=== PATIENT | male | born 1975 | race Two or more races ===

== ENCOUNTER 2017-10-22 04:39 | Emergency (ER) | payer MEDICAID ==
[2017-10-22 04:45] VITALS: TEMP 98.6
--- NOTE | 2017-10-22 04:46 | EDPHY ---
H & P Stated Complaint: L hand injury, "nail through it 2 days ago" Source: Patient - Personal History Current Tetanus Diphtheria and Acellular Pertussis (TDAP): Yes Tetanus Vaccine Date: 12/25/12 - Medical/Surgical History Hx Asthma: No Hx Chronic Respiratory Disease: No Hx Diabetes: No Hx Cardiac Disease: No Hx Renal Disease: No Hx Cirrhosis: No Hx Alcoholism: No Hx HIV/AIDS: No Hx Splenectomy or Spleen Trauma: No Other PMH: pmh- previous back injury - Social History Smoking Status: Current every day smoker Time Seen by Provider: 10/22/17 04:40 HPI/ROS: HPI CHIEF COMPLAINT: Now through the palmar aspect of the left hand on Friday/3 days a go HISTORY OF PRESENT ILLNESS: Patient is a very pleasant 42-year-old male he is otherwise healthy with no significant medical history presents emergency room stating that on Friday or approximately 3 days ago he was doing some construction work and pushed on a cabinet, did not see the nail the nail went into the palmar aspect middle aspect of his left hand. He woke up this evening with his hand throbbing. He has had no fever. Denies any significant drainage from it. However the pain is rather intense see could not sleep so decided come the emergency room for evaluation. He does report his tetanus shot is up- to-date as he had one in 2011. Patient been taking ibuprofen for pain control. However has ongoing pain. Past Medical History: Denies medical history Past Surgical History: Denies recent surgery history Social History: Denies daily drugs or alcohol. Family History: Noncontributory ROS REVIEW OF SYSTEMS: A comprehensive 10 point review of systems is otherwise negative aside from elements mentioned in the history of present illness. Exam Constitutional triage nursing summary reviewed, vital signs reviewed, awake/ alert. Eyes normal conjunctivae and sclera, EOMI, PERRLA. HENT normal inspection, atraumatic, moist mucus membranes, no epistaxis, neck supple/ no meningismus, no raccoon eyes. Respiratory clear to auscultation bilaterally, normal breath sounds, no respiratory distress, no wheezing. Cardiovascular rate normal, regular rhythm, no murmur, no edema, distal pulses normal. Gastrointestinal soft, non-tender, no rebound, no guarding, normal bowel sounds, no distension, no pulsatile mass. Genitourinary no CVA tenderness. Musculoskeletal left hand: Palmar aspect: Minor swelling noted to the palmar aspect left hand. He has good experimental technician strength, able to fully extend his fingers. There is a puncture wound at the center of his palm, mild erythema to it no significant warmth. No pus. No crepitus. Does have pain when you press there as well as when he flexes his fingers all the way in. No sausage digit. Good cap refill. Good radial pulse. No signs of compartment syndrome. no midline vertebral tenderness, full range of motion, no calf swelling, no tenderness of extremities, no meningismus, good pulses, neurovascularly intact. Skin pink, warm, & dry, no rash, skin atraumatic. Neurologic awake, alert and oriented x 3, AAOx3, moves all 4 extremities equally, motor intact, sensory intact, CN II-XII intact, normal cerebellar, normal vision, normal speech. Psychiatric normal mood/affect. Heme/Lymph/Immune no lymphadenopathy. Differential Diagnosis: Includes but is not limited to in a particular order puncture wound causing hand inflammation, infection, deep space hand infection, foreign body, tendon injury, bony injury, laceration of a blood vessel Medical Decision Making: Plan for this patient check basic blood work including white count, x-ray left hand. Mariposa for pain control. Keflex and Bactrim for antibiotic coverage. Re-evaluation: Hand x-ray three view reviewed by me. No evidence of foreign body or gas. Very mild soft tissue swelling. 0634AM: Spoke with Hand surgery Dr. Melchor, discussed the case with him, given the redness, puncture wound, hand swelling there is concern about possible deep space hand infection. He would like an MRI of the hand. I have ordered this. Will need to call in MRIs at 6:30 a.m. In the morning. I have updated the patient. This patient be signed over to Dr. Hakeem Howe at 7:00 a.m. Shift change. Follow-up MRI results and notify Dr. Coleman's about the MRI results. Patient has received Keflex and Bactrim here in the emergency room. As well as additionally Mariposa for pain control. His blood work has been reviewed. Does show mild leukocytosis 13,000. Left shift. He is afebrile here. Nontoxic. 0642AM: Signed over to Dr. Howe. Pending results of MRI. (Robbin Asher) Constitutional: Initial Vital Signs Temperature (C) 37.0 C 10/22/17 04:40 Heart Rate 107 H 10/22/17 04:40 Respiratory Rate 20 10/22/17 04:40 Blood Pressure 124/89 H 10/22/17 04:40 O2 Sat (%) 94 10/22/17 04:40 O2 Delivery Mode Room Air Allergies/Adverse Reactions: venom-honey bee [bee venom (honey bee)] Allergy (Verified 10/22/17 04:40) Home Medications: Medication Instructions Recorded Cephalexin [Keflex] 500 mg PO Q6H #28 cap 10/22/17 Hydrocodone/APAP 5/325 [Mariposa 1 - 2 tab PO Q4H PRN #20 tab 10/22/17 5/325] Ibuprofen [Motrin (*)] 800 mg PO Q6-8PRN #14 tab 10/22/17 Sulfamethox/Tmp 800/160 mg 1 tab PO BID@1000,2200 #14 tab 10/22/17 [Bactrim Ds] Medical Decision Making - Diagnostics Imaging Results: Imaging Impressions Upper Extremity MRI 10/22/17 06:38 Impression: Cellulitis palmar aspect of the hand extending to the flexor tendons at the level of the metacarpophalangeal joint. Minimal tenosynovitis third flexor tendon. No evidence for abscess. Results discussed with Dr. Alli Coleman and Dr. Hakeem Howe on 22 October 2017 at 0845 hours. Other Provider: Patient signed out to me at 0700 pending MRI. MRI read by Arnaldo as concerning for possible tenosynovitis. I discussed the case with Dr. Coleman who plans to wash out hand in OR later this afternoon. He requests medicine admit. Patient accepted by Marj for admission to Dr. Whitaker's service. (Hakeem Howe) - Data Points Laboratory Results: Laboratory Results 10/22/17 04:58 10/22/17 04:58 Medications Given: Discontinued Medications Hydrocodone Bitart/Acetaminophen (Mariposa 5/325mg Prepack#6) 1 btl TAKEHOME EDNOW ONE Stop: 10/22/17 04:52 Last Admin: 10/22/17 05:09 Dose: 1 btl Hydrocodone Bitart/Acetaminophen (Mar[place]osa 10/325) 1 tab PO EDNOW ONE Stop: 10/22/17 04:52 Last Admin: 10/22/17 05:07 Dose: Not Given Hydrocodone Bitart/Acetaminophen (Mariposa 5/325) 2 tab PO EDNOW ONE Stop: 10/22/17 05:07 Last Admin: 10/22/17 05:06 Dose: 2 tab Cephalexin (Keflex 500 Mg Prepack#4) 1 btl TAKEHOME EDNOW ONE PRN Reason: Protocol Stop: 10/22/17 04:53 Last Admin: 10/22/17 05:08 Dose: 1 btl Cephalexin HCl (Keflex) 500 mg PO EDNOW ONE PRN Reason: Protocol Stop: 10/22/17 04:53 Last Admin: 10/22/17 05:07 Dose: 500 mg Trimethoprim/Sulfamethoxazole (Bactrim Ds Prepack#2) 1 btl TAKEHOME EDNOW ONE Stop: 10/22/17 04:53 Last Admin: 10/22/17 05:08 Dose: 1 btl Trimethoprim/Sulfamethoxazole (Bactrim Ds) 1 ea PO EDNOW ONE PRN Reason: Protocol Stop: 10/22/17 04:53 Last Admin: 10/22/17 05:07 Dose: 1 ea Departure - Departure Disposition: Home, Routine, Self-Care Clinical Impression: Puncture wound Condition: Good Instructions: Cephalexin (By mouth), Sulfamethoxazole/Trimethoprim (By mouth), Hydrocodone/Acetaminophen (By mouth), Puncture Wound (ED), Cellulitis (ED) Additional Instructions: 1. Return emergency room if you have worsening pain, swelling, fever, redness, drainage 2. Antibiotics as prescribed. 3. Keep her hand protected. 4. Follow up closely with Hand surgery. Call their for follow-up appointment. Referrals: NONE *PRIMARY CARE P,. [Primary Care Provider] - As per Instructions Alli Coleman MD [Medical Doctor] - As per Instructions Prescriptions: Cephalexin [Keflex] 500 mg PO Q6H #28 cap Hydrocodone/APAP 5/325 [Mariposa 5/325] 1 - 2 tab PO Q4H PRN #20 tab PRN Reason: Pain, Moderate Ibuprofen [Motrin (*)] 800 mg PO Q6-8PRN #14 tab Sulfamethox/Tmp 800/160 mg [Bactrim Ds] 1 tab PO BID@1000,2200 #14 tab
[2017-10-22] MEDS ORDERED: HYDROCOD/APAP 5/325 PREPACK#6 BTL TAKEHOME ONE (04:51)
[2017-10-22] MEDS ORDERED: HYDROCODONE/APAP 10/325 TAB PO ONE (04:51)
[2017-10-22] MEDS ORDERED: CEPHALEXIN 500MG PREPACK#4 BTL TAKEHOME ONE (04:52)
[2017-10-22] MEDS ORDERED: CEPHALEXIN 500 MG CAP PO ONE (04:52)
[2017-10-22] MEDS ORDERED: SULFAMET/TMP DS PREPACK#2 BTL TAKEHOME ONE (04:52)
[2017-10-22] MEDS ORDERED: SULFAMETHOX/TMP 800/160 MG 1 TAB PO ONE (04:52)
[2017-10-22] MEDS ORDERED: HYDROCODONE/APAP 5/325 TAB ONE (05:03)
[2017-10-22] MEDS ORDERED: HYDROCODONE/APAP 5/325 TAB PO ONE (05:06)
[2017-10-22 05:26] LABS: PLATELET COUNT 229 10^3/uL (150-400)
[2017-10-22] MEDS ORDERED: GADOBUTROL 10 ML VIAL IVP ONE (06:56)
[2017-10-22 09:12] VITALS: BP 126/72; PULSE 65; RESP 16; O2SAT 98
[2017-10-22] MEDS ORDERED: ACETAMINOPHEN 325 MG TAB PO PRN (14:30)
[2017-10-22] MEDS ORDERED: oxyCODONE IR 5 MG TAB PO PRN (14:30)
[2017-10-22] MEDS ORDERED: ONDANSETRON 4 MG/2 ML VIAL IVP PRN (14:30)
[2017-10-22] MEDS ORDERED: ONDANSETRON DISINTEGRATING 4 MG TAB PO PRN (14:30)
--- NOTE | 2017-10-23 06:32 | GCON ---
[f rep st] CONSULTATION Patient Name: JAXON MOSQUERA N-Number: [id number] Date of : 1975 Patient Status: Inpatient Attending Doctor: Salvatore Myrick MD Consulting Doctor: Alli Coleman MD Date of service: 10/22/17 CPT codes: CPT code 21309 ER visit requiring admission or initial inpatient visit, level three Modifier 57 decision for surgery CHIEF COMPLAINT: Left hand pain HISTORY OF PRESENT ILLNESS: This is a very pleasant 42 year old male now two days s/p a left volar hand puncture wound with a nail on 10/20/17 when he was assembling some cabinets. He presented to the [facility] ED earlier today (10/22/17) due to increasing pain and swelling in his left hand. He subsequently underwent a left hand MRI which demonstrated left hand cellulitis, an early deep space abscess, and early left long finger flexor tenosynovitis. PROBLEM LIST: Left hand deep space infection, left long finger flexor tenosynovitis PAST MEDICAL HISTORY: None SURGERIES: Right tibia IMN (2012) SOCIAL HISTORY: Positive for tobacco FAMILY HISTORY: Mother and siblings with DM II CURRENT MEDICATIONS: None ALLERGIES: NKDA REVIEW OF SYSTEMS Constitutional: No unexpected weight loss, weight gain, fevers, chills, or fatigue. Eyes: No blurred or double vision, no eye pain, redness or swelling. ENT: No headaches, difficulty swallowing, nose bleeds, tinnitus, or earaches. Cardiovascular: No chest pain, palpitations, fainting or murmurs. Respiratory: No shortness of breath, wheezing, cough, of difficulty breathing. GI: No reflux, no nausea or vomiting, no constipation, diarrhea, or bloody stools. Genitourinary: No urinary frequency or urgency, no pain with urination. Skin: No skin changes, rashes, itching, or redness. Neurologic: No unsteadiness of gait, no dizziness, tremors, or seizures. Psychiatric: No nervousness, anxiety, depression, or hallucinations. Hematologic: No increased bleeding or easy bruising. Endocrine: No excessive thirst or urination and no heat or cold intolerances. Allergic: No reactions to food or environment. Musculoskeletal: See history of present illness. PHYSICAL EXAM General: No apparent distress. Orientation: Alert and oriented times three Mood and affect: Calm, appropriate. Gait and station: Normal gait and station. Skin: Warm, dry. Lymph: Non tender neck, axillary and inguinal nodes. Chest: Equal expansion, no pain with deep breaths, speaks in coherent sentences. Cardiovascular: Regular pulse. Abdomen: Soft, non-tender, no masses, no palpable hernias. Bilateral wrist examination Inspection/palpation: Right: Normal resting posture. Left: Erythematous streaking along the volar forearm and anterior elbow Wrist ROM Wrist Flexion: 90 / 90 / 90 Extension: 90 / 90 / 90 Forearm Supination: 0-80 / 0-80 / 0-80 Pronation: 0-80 / 0-80 / 0-80 Wrist/hand strength (R / L / Normal) ECRL/ECRB (C6): FCU/ECU: EDC: EPL (PIN): FPL (AIN): FDS (C8): FDP (C8): FDP-I (C8 / AIN): DI (C8-T1): PI (C8-T1): Wrist/hand sensory MABC : + / + / + LABC: + / + / + Median: + / + / + Palmar cutaneous: + / + / + Radial: + / + / + SBRN: + / + / + Ulnar: + / + / + DSBUN: + / + / + Bilateral hand and finger examination Inspection/palpation: Right: Soft, no tenderness to palpation. Left: 2mm puncture wound overlying the volar aspect of the left long finger mid metacarpal shaft with surrounding erythema and swelling, pain with passive extension of the left long finger Finger ROM Index MCP: 0-80 / 0-80 / 0-80 PIP: 0-105 / 0-105 / 0-105 DIP: 0-75 / 0-75 / 0-75 Long MCP: 0-80 / 0-60 / 0-80 PIP: 0-105 / 0-85 / 0-105 DIP: 0-75 / 0-55 / 0-75 Ring MCP: 0-80 / 0-80 / 0-80 PIP: 0-105 / 0-105 / 0-105 DIP: 0-75 / 0-75 / 0-75 Small MCP: 0-80 / 0-80 / 0-80 PIP: 0-105 / 0-105 / 0-105 DIP: 0-75 / 0-75 / 0-75 Finger motor and sensory Index FDS: + / + / + FDP: + / + / + EDC: + / + / + RDN: + / + / + UDN: + / + / + Long FDS: + / + / + FDP: + / + / + EDC: + / + / + RDN: + / + / + UDN: + / + / + Ring FDS: + / + / + FDP: + / + / + EDC: + / + / + RDN: + / + / + UDN: + / + / + Small FDS: + / + / + FDP: + / + / + EDC: + / + / + RDN: + / + / + UDN: + / + / + Bilateral thumb examination Inspection/palpation: Right: Soft, no tenderness to palpation. Left: Soft, no tenderness to palpation. Thumb ROM CMC Radial abduction: 80 / 80 / 80 Palmar abduction: 80 / 80 / 80 MCP: 0-60 / 0-60 / 0-60 IP: 0-50 / 0-50 / 0-50 Thumb motors FPL: 5 / 5 / 5 EPL: 5 / 5 / 5 Thumb sensory RDN: + / + / + UDN: + / + / + Medical decision making Data Imaging study: left hand MRI Action: interpreted Interpretation / pertinent findings: left hand early deep space infection overlying the left long finger mid metacarpal shaft volarly, early left long finger flexor tenosynovitis Diagnoses New diagnosis: early left hand deep space infection, early left long finger flexor tenosynovitis Work-up planned: yes: see assessment and plan Assessment and plan This is a 42 year old male now 2 days s/p a left hand puncture wound on 10/20/17 with an early left hand deep space infection as well as early left long finger flexor tenosynovitis -As such I have discussed with the patient the risks, benefits, alternatives, and complications associated with both non-operative (specifically, observation , antibiotics) and operative (specifically, left hand irrigation and debridement ) forms of treatment -The patient fully understands the risks, benefits, alternatives, and complications of both forms of treatment and the patient wishes to proceed with operative intervention as outlined above -He has signed the informed consent form for surgery and surgery will be performed as soon as the OR is available Time I have spent 80 minutes of rqey-sw-[id number] time with the patient during this visit. Over fifty percent of this time was spent counseling the patient on the risks, benefits, alternatives, and complications of both non-operative and operative forms of treatment as outlined above. /[id number]/MODL MTDD
--- NOTE | 2017-10-23 06:38 | GOP ---
[f rep st] OPERATIVE REPORT PATIENT: JAXON MOSQUERA DATE OF SERVICE: 10/22/17 PATIENT DATE OF : 1975 SURGEON: Alli Coleman M.D. FARM OWNER OPERATOR: Nadiya ANESTHESIA: General PRE-OPERATIVE DIAGNOSES: Left hand deep space infection (ICD-10 code L02.512 cutaneous abscess of left hand) Left long finger purulent flexor tenosynovitis (ICD-10 code M65.849 flexor tenosynovitis) POST-OPERATIVE DIAGNOSES: Left hand deep space infection (ICD-10 code L02.512 cutaneous abscess of left hand) Left long finger purulent flexor tenosynovitis (ICD-10 code M65.849 flexor tenosynovitis) OPERATIVE PROCEDURES: CPT code 06235 Left long finger A1 franklin release CPT code 40180 Left long finger flexor tenosynovectomy CPT code 30173 Left long finger drainage of tendon sheath CPT code 11268 Left hand abscess incision and drainage, complicated CPT code 46959 Debridement of muscle and fascia, first 20 square cm or less CPT code 50577 Left open carpal tunnel release CPT code 72002 Application of a short-arm splint EBL: 1cc COMPLICATIONS: None TOURNIQUET TIME: 87 minutes at 250 mmHg IMPLANTS: None BRIEF CLINICAL NOTE: This is a very pleasant 42 year old male with a significant history for an early left hand deep space infection and early left long finger flexor tenosynovitis after a penetrating trauma on 10/20/17. As such , I discussed the risks, benefits, alternatives, and complications associated with both non-operative (specifically, observation, antibiotics) and operative ( specifically, left hand irrigation and debridement) forms of treatment. The patient fully understood the risks, benefits, alternatives, and complications associated with both forms of treatment and wished to proceed with operative intervention as outlined above. The patient signed the informed consent form for surgery. OPERATIVE NOTE: On the day of surgery, all of the patients questions were answered. The patient was then transferred from the pre-operative area into the operating room and a formal, Time-Out procedure was performed. The patient was identified by name, medical record number, social security number, and date of . In addition, the patients left upper extremity was identified as the correct portion of the patients body for surgery with the patients left hand being identified as the correct portion of that extremity for surgery. The brachium was then padded with webril and tourniquet was applied. The extremity was then prepped and draped in the normal sterile fashion. The extremity was then elevated for several minutes and the tourniquet was inflated to 250mm Hg. Suzi-type incisions were marked out overlying the left long finger distal phalanx and the left long finger A1 franklin. In addition, the A1 franklin incision was extended proximally overlying the carpal tunnel to incorporate the puncture wound into the incision. A number 15 blade was then used to incise the skin surrounding the puncture wound both proximally and distally. Soon after incising the skin, a moderate amount of purulent material was encountered overlying the left long finger flexor tendon and the interosseous muscles. The purulent material was swab cultured and tissue cultures were also obtained and sent to the laboratory for microbiologic examination. The anesthesia team administered intravenous antibiotics. The radial and ulnar neurovascular bundles to the long finger were identified and protected. The superficial palmar fascia was then incised longitudinally overlying the carpal tunnel. The transverse carpal ligament was then incised in its entirety (carpal tunnel release) to provide acess to the long finger flexor tendon within the carpal tunnel. Next, the left long finger A1 franklin was released. The left long finger flexor tendons were surrounded by unhealthy appearing synovial tissue. As such, a radical tenosynovectomy was performed for the left long finger flexor tendons. The wound was then sharply surgically debrided and copiously irrigated with sterile normal saline mixed with bacitracin and polymixin. Next, a new number 15 blade was then utilized to incise the skin overlying the volar distal phalanx of the left long finger. The radial and ulnar neurovascular bundles as well as the flexor tendon were identified and protected distally. A skin flap was carefully elevated and tied back in place utilizing 4-0 nylon suture. The distal end of the flexor sheath was then identified and incised. A five [place] pediatric feeding tube was then advanced through the proximal left long finger flexor sheath in an anterograde fashion. The entire flexor sheath was then copiously irrigated with sterile normal saline mixed with Bacitracin and polymixin. A one-quarter inch nu-gauze packing strip was then inserted into the original puncture wound site in the palm and all wounds were closed with 4-0 nylon sutures. The hand, fingers, and thumb were then cleaned with sterile normal saline and dried. Betadine soaked gauze was then applied to the incisions followed by a dry sterile dressing and a short-arm volar slab splint. Once the splint was completely in place, the tourniquet was deflated. After complete deflation of the tourniquet, all fingers and the thumb demonstrated brisk capillary refill. The patient was then reversed from anesthesia and transferred from the operating room table onto the post-operative gurney and transferred from the operating room to the post-anesthesia care unit in stable condition. POST-OPERATIVE PLAN: The patient will remain in the current splint and dressing for the next two days. The patient will be admitted to the hospitalist team and the infectious disease team will be consulted for recommendations on long-term antibiotics. /[id number]/MODL MTDD
== END 2017-10-22 10:05 | disposition home or self-care (01) ==
LOC: UNDOADMOB 08:51
DX: S61.432A Puncture wound without foreign body of left hand, initial encounter (principal); F17.200 Nicotine dependence, unspecified, uncomplicated; W22.8XXA Striking against or struck by other objects, initial encounter; Y99.0 Civilian activity done for income or pay; Y93.H3 Activity, building and construction
CPT/HCPCS: A9585

== ENCOUNTER 2017-10-22 12:37 | Inpatient (IN) | payer MEDICAID ==
[2017-10-22] MEDS ORDERED: fentaNYL 100 MCG/2 ML INJ IVP PRN (14:28)
[2017-10-22] MEDS ORDERED: LR 1,000 ML IV ONE (14:36)
[2017-10-22] MEDS ORDERED: LIDOCAINE 1% 300 MG/30 ML SDV ONE (15:31)
[2017-10-22] MEDS ORDERED: BACITRACIN 50,000 UNITS/10 ML SYR IRR ONE (15:31)
[2017-10-22] MEDS ORDERED: BUPIVACAINE 0.5% 10 ML SDV ONE (15:31)
[2017-10-22] MEDS ORDERED: MIDAZOLAM 2 MG/2 ML VIAL IVP ONE (16:00)
[2017-10-22] MEDS ORDERED: ONDANSETRON DISINTEGRATING 4 MG TAB PO PRN (16:02)
--- NOTE | 2017-10-22 16:03 | PDANEPAE ---
ANE History of Present Illness 42 year old male for I and D of Left Hand. ANE Past Medical History - Cardiovascular History Hx Hypertension: No Hx Arrhythmias: No Hx Chest Pain: No Hx Coronary Artery / Peripheral Vascular Disease: No Hx CHF / Valvular Disease: No Hx Palpitations: No - Pulmonary History Hx COPD: No Hx Asthma/Reactive Airway Disease: No Hx Recent Upper Respiratory Infection: No Hx Oxygen in Use at Home: No Hx Sleep Apnea: No Sleep Apnea Screening Result - Last Documented: Negative - Neurologic History Hx Cerebrovascular Accident: No Hx Seizures: No Hx Dementia: No - Endocrine History Hx Diabetes: No - Renal History Hx Renal Disorders: No - Liver History Hx Hepatic Disorders: No - Neurological & Psychiatric Hx Hx Neurological and Psychiatric Disorders: No - Cancer History Hx Cancer: No - Congenital Disorder History Hx Congenital Disorders: No - GI History Hx Gastrointestinal Disorders: No - Surgical History Prior Surgeries: Bilateral repair of fractures in legs (hardware in R leg) ANE Review of Systems Review of systems is: negative Review of Systems: - Exercise capacity METS (RN): 6 METS ANE Patient History - Allergies Allergies/Adverse Reactions: venom-honey bee [bee venom (honey bee)] Allergy (Verified 10/22/17 04:40) - NPO status NPO Since - Liquids (Date): 10/22/17 NPO Since - Liquids (Time): 04:00 NPO Since - Solids (Date): 10/21/17 NPO Since - Solids (Time): 18:00 - Smoking Hx Smoking Status: Current every day smoker - Family Anes Hx Family Hx Anesthesia Complications: none ANE Labs/Vital Signs - Vital Signs Blood Pressure: 116/70 Heart Rate: 90 Respiratory Rate: 16 O2 Sat (%): 96 Height: 165.1 cm Weight: 81.647 kg ANE Physical Exam - Airway Neck exam: FROM Mallampati Score: Class 2 Mouth exam: normal dental/mouth exam - Pulmonary Pulmonary: no respiratory distress - Cardiovascular Cardiovascular: regular rate and rhythym - ASA Status ASA Status: I ANE Anesthesia Plan Anesthesia Plan: GA w LMA
[2017-10-22] MEDS ORDERED: PROPOFOL/EMULSION 500 MG/50 ML BOTTLE IV ONE ×2 (16:05→16:42)
[2017-10-22] MEDS ORDERED: BISACODYL 10 MG SUPP PR PRN (16:06)
[2017-10-22] MEDS ORDERED: LACTULOSE 20 GM/30 ML UDCUP PO PRN (16:06)
[2017-10-22] MEDS ORDERED: MAGNESIUM HYDROXIDE 30 ML UDCUP PO PRN (16:06)
[2017-10-22] MEDS ORDERED: POLYETHYLENE GLYCOL 3350 17 GM PKT PO PRN (16:06)
[2017-10-22] MEDS ORDERED: ACETAMINOPHEN 500 MG TAB PO PRN (16:06)
[2017-10-22] MEDS ORDERED: fentaNYL 250 MCG/5 ML INJ ONE (16:06)
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
[2017-10-22] MEDS ORDERED: LABETALOL HCL 5 MG/ML 20 ML MDV IVP PRN (17:43)
[2017-10-22] MEDS ORDERED: PROMETHAZINE HCL 25 MG/ML INJ IVP PRN (17:43)
[2017-10-22] MEDS ORDERED: NALOXONE HCL 0.4 MG/ML INJ IVP PRN (17:43)
[2017-10-22] MEDS ORDERED: ONDANSETRON 4 MG/2 ML VIAL IVP PRN (17:43)
[2017-10-22] MEDS ORDERED: DEXAMETHASONE 4 MG/ML VIAL IVP PRN (17:43)
[2017-10-22] MEDS ORDERED: METOCLOPRAMIDE 10 MG/2 ML VIAL IVP PRN (17:43)
[2017-10-22] MEDS ORDERED: MEPERIDINE 25 MG/ML SYR IVP PRN (17:43)
[2017-10-22] MEDS ORDERED: HYDROCODONE/APAP 5/325 TAB PO PRN (17:43)
[2017-10-22] MEDS ORDERED: ALBUTEROL 3 ML DEYVIAL IH PRN (17:43)
[2017-10-22] MEDS ORDERED: LR 500 ML IV PRN (17:43)
[2017-10-22] MEDS ORDERED: LABETALOL HCL 5 MG/ML 20 ML MDV ONE (17:57)
--- NOTE | 2017-10-22 18:20 | POSTANESTH ---
Post Anesthetic Evaluation Cardiovascular Status: Normal, Stable Respiratory Status: Normal, Stable Level of Consciousness/Mental Status: Can Participate in Eval Pain Control: Adequate, Prn Tx Ordered Nausea/Vomiting Control: Adequate, Prn Tx Ordered Complications Possibly Related to Anesthesia: None Noted
--- NOTE | 2017-10-22 18:25 | SOAPPROG ---
SOAP Progress Note Assessment/Plan: Assessment: HPI: 42 y/o male now 2 days s/p a left hand volar puncture wound on 10/20/17 with a deep space infection and early left long finger flexor tenosynovitis. PE: Gen: AVSS LUE: 2mm puncture wound overlying the volar left long finger mid metacarpal shaft TTP overlying the proximal left long finger flexor sheath and pain with passive left long finger extension +ECRL, ECRB, EDC, FPL, EPL, FDS, FDP, FDP-I, DI, PI +SILT in M/R/U distributions 2+ radial and ulnar pulses Left hand MRI: cellulitis overlying the volar palm with left long finger flexor tenosynovitis Assessment and Plan 42 y/o male now 2 days s/p a left hand volar puncture wound on 10/20/17 with a deep space infection and early left long finger flexor tenosynovitis. -Plan for OR for irrigation and debridement -The patient has signed the informed consent form for surgery -Full consult note to follow 10/22/17 18:22 Objective: Vital Signs Temp Pulse Resp BP Pulse Ox 37.1 C 90 16 116/70 96 10/22/17 13:29 10/22/17 16:03 10/22/17 16:03 10/22/17 16:03 10/22/17 16:03 Microbiology 10/22/17 17:00 Mycobacterial Smear (ROMANA) - Final Hand - Eswab Mycobacterial Culture - Final 10/22/17 17:00 Mycobacterial Smear (ROMANA) - Final Hand - Eswab Mycobacterial Culture - Final ICD10 Worksheet Patient Problems: Problems Problem Status Onset Puncture wound Acute
--- NOTE | 2017-10-22 18:27 | POSTOPPROG ---
Post Op Note Date of Operation: 10/22/17 Surgeon: Alli Coleman Anesthesiologist: Karen Anesthesia: GET(General Endotracheal) Pre-op Diagnosis: Left hand deep space infection, flexor tenosynovitis Post-op Diagnosis: Left hand deep space infection, flexor tenosynovitis Indication: Left hand deep space infection, flexor tenosynovitis Procedure: Left hand I&D, left long finger flexor sheath I&D, CTR Inf/Abcess present in the surg proc area at time of surgery?: Yes Depth: Deep Incisional (Fascial) EBL: Minimal Drains: Other
--- NOTE | 2017-10-22 18:29 | SOAPPROG ---
SOAP Progress Note Assessment/Plan: Assessment: HPI: 42 y/o male POD#0 from left hand deep space I&D with extended CTR and left long finger flexor sheath I&D on 10/22/17 PE: Gen: AVSS LUE: Volar splint CDI +FDS, FDP, FDP-I, FPL, EPL, EDC +SILT in M/R/U distributions <2 second capillary refill in all digits Assessment and Plan 42 y/o male POD#0 from left hand deep space I&D with extended CTR and left long finger flexor sheath I&D on 10/22/17 -Leave current splint and dressing in place with packing strip in place for the next 24-48 hours -Belem Coyle PA-C to remove / exchange packing strip prior to D/C -Consult ID for long-term antibiotic recommendations -Strict NWB on LUE 10/22/17 18:27 Objective: Vital Signs Temp Pulse Resp BP Pulse Ox 37.1 C 90 16 116/70 96 10/22/17 13:29 10/22/17 16:03 10/22/17 16:03 10/22/17 16:03 10/22/17 16:03 Microbiology 10/22/17 17:00 Mycobacterial Smear (ROMANA) - Final Hand - Eswab Mycobacterial Culture - Final 10/22/17 17:00 Mycobacterial Smear (ROMANA) - Final Hand - Eswab Mycobacterial Culture - Final ICD10 Worksheet Patient Problems: Problems Problem Status Onset Puncture wound Acute
[2017-10-22] MEDS ORDERED: HYDROmorphONE/DILAUDID 2 MG/ML INJ IVP PRN (18:31)
[2017-10-22] MEDS ORDERED: fentaNYL 100 MCG/2 ML INJ ONE (18:37)
[2017-10-22] MEDS: fentaNYL 100 MCG/2 ML INJ IVP PRN ×2 (18:38→18:50)
[2017-10-22] MEDS: oxyCODONE IR 5 MG TAB PO PRN (20:26)
[2017-10-22] MEDS: VANCOMYCIN 1.25 GM in NS 250 ML IV SCH (20:28)
[2017-10-22] MEDS: IBUPROFEN 800 MG TAB PO PRN (21:57)
[2017-10-22] MEDS: SENNOSIDES/DOCUSATE SODIUM TAB PO SCH (21:58)
[2017-10-23] MEDS: oxyCODONE IR 5 MG TAB PO PRN ×4 (03:16→16:33)
[2017-10-23] MEDS: IBUPROFEN 800 MG TAB PO PRN ×2 (05:14→12:18)
--- NOTE | 2017-10-23 06:32 | GCON ---
[f rep st] CONSULTATION Corrected report Patient Name: JAXON MOSQUERA N-Number: [id number] Date of : 1975 Patient Status: Inpatient Attending Doctor: Salvatore Myrick MD Consulting Doctor: Alli Coleman MD Date of service: 10/22/17 CPT codes: CPT code 94147 ER visit requiring admission or initial inpatient visit, level three Modifier 57 decision for surgery CHIEF COMPLAINT: Left hand pain HISTORY OF PRESENT ILLNESS: This is a very pleasant 42 year old male now two days s/p a left volar hand puncture wound with a nail on 10/20/17 when he was assembling some cabinets. He presented to the [facility] ED earlier today (10/22/17) due to increasing pain and swelling in his left hand. He subsequently underwent a left hand MRI which demonstrated left hand cellulitis, an early deep space abscess, and early left long finger flexor tenosynovitis. PROBLEM LIST: Left hand deep space infection, left long finger flexor tenosynovitis PAST MEDICAL HISTORY: None SURGERIES: Right tibia IMN (2012) SOCIAL HISTORY: Positive for tobacco FAMILY HISTORY: Mother and siblings with DM II CURRENT MEDICATIONS: None ALLERGIES: NKDA REVIEW OF SYSTEMS Constitutional: No unexpected weight loss, weight gain, fevers, chills, or fatigue. Eyes: No blurred or double vision, no eye pain, redness or swelling. ENT: No headaches, difficulty swallowing, nose bleeds, tinnitus, or earaches. Cardiovascular: No chest pain, palpitations, fainting or murmurs. Respiratory: No shortness of breath, wheezing, cough, of difficulty breathing. GI: No reflux, no nausea or vomiting, no constipation, diarrhea, or bloody stools. Genitourinary: No urinary frequency or urgency, no pain with urination. Skin: No skin changes, rashes, itching, or redness. Neurologic: No unsteadiness of gait, no dizziness, tremors, or seizures. Psychiatric: No nervousness, anxiety, depression, or hallucinations. Hematologic: No increased bleeding or easy bruising. Endocrine: No excessive thirst or urination and no heat or cold intolerances. Allergic: No reactions to food or environment. Musculoskeletal: See history of present illness. PHYSICAL EXAM General: No apparent distress. Orientation: Alert and oriented times three Mood and affect: Calm, appropriate. Gait and station: Normal gait and station. Skin: Warm, dry. Lymph: Non tender neck, axillary and inguinal nodes. Chest: Equal expansion, no pain with deep breaths, speaks in coherent sentences. Cardiovascular: Regular pulse. Abdomen: Soft, non-tender, no masses, no palpable hernias. Bilateral wrist examination Inspection/palpation: Right: Normal resting posture. Left: Erythematous streaking along the volar forearm and anterior elbow Wrist ROM Wrist Flexion: 90 / 90 / 90 Extension: 90 / 90 / 90 Forearm Supination: 0-80 / 0-80 / 0-80 Pronation: 0-80 / 0-80 / 0-80 Wrist/hand strength (R / L / Normal) ECRL/ECRB (C6): FCU/ECU: EDC: EPL (PIN): FPL (AIN): FDS (C8): FDP (C8): FDP-I (C8 / AIN): DI (C8-T1): PI (C8-T1): Wrist/hand sensory MABC : + / + / + LABC: + / + / + Median: + / + / + Palmar cutaneous: + / + / + Radial: + / + / + SBRN: + / + / + Ulnar: + / + / + DSBUN: + / + / + Bilateral hand and finger examination Inspection/palpation: Right: Soft, no tenderness to palpation. Left: 2mm puncture wound overlying the volar aspect of the left long finger mid metacarpal shaft with surrounding erythema and swelling, pain with passive extension of the left long finger Finger ROM Index MCP: 0-80 / 0-80 / 0-80 PIP: 0-105 / 0-105 / 0-105 DIP: 0-75 / 0-75 / 0-75 Long MCP: 0-80 / 0-60 / 0-80 PIP: 0-105 / 0-85 / 0-105 DIP: 0-75 / 0-55 / 0-75 Ring MCP: 0-80 / 0-80 / 0-80 PIP: 0-105 / 0-105 / 0-105 DIP: 0-75 / 0-75 / 0-75 Small MCP: 0-80 / 0-80 / 0-80 PIP: 0-105 / 0-105 / 0-105 DIP: 0-75 / 0-75 / 0-75 Finger motor and sensory Index FDS: + / + / + FDP: + / + / + EDC: + / + / + RDN: + / + / + UDN: + / + / + Long FDS: + / + / + FDP: + / + / + EDC: + / + / + RDN: + / + / + UDN: + / + / + Ring FDS: + / + / + FDP: + / + / + EDC: + / + / + RDN: + / + / + UDN: + / + / + Small FDS: + / + / + FDP: + / + / + EDC: + / + / + RDN: + / + / + UDN: + / + / + Bilateral thumb examination Inspection/palpation: Right: Soft, no tenderness to palpation. Left: Soft, no tenderness to palpation. Thumb ROM CMC Radial abduction: 80 / 80 / 80 Palmar abduction: 80 / 80 / 80 MCP: 0-60 / 0-60 / 0-60 IP: 0-50 / 0-50 / 0-50 Thumb motors FPL: 5 / 5 / 5 EPL: 5 / 5 / 5 Thumb sensory RDN: + / + / + UDN: + / + / + Medical decision making Data Imaging study: left hand MRI Action: interpreted Interpretation / pertinent findings: left hand early deep space infection overlying the left long finger mid metacarpal shaft volarly, early left long finger flexor tenosynovitis Diagnoses New diagnosis: early left hand deep space infection, early left long finger flexor tenosynovitis Work-up planned: yes: see assessment and plan Assessment and plan This is a 42 year old male now 2 days s/p a left hand puncture wound on 10/20/17 with an early left hand deep space infection as well as early left long finger flexor tenosynovitis -As such I have discussed with the patient the risks, benefits, alternatives, and complications associated with both non-operative (specifically, observation , antibiotics) and operative (specifically, left hand irrigation and debridement ) forms of treatment -The patient fully understands the risks, benefits, alternatives, and complications of both forms of treatment and the patient wishes to proceed with operative intervention as outlined above -He has signed the informed consent form for surgery and surgery will be performed as soon as the OR is available Time I have spent 80 minutes of [id number]-grbf time with the patient during this visit. Over fifty percent of this time was spent counseling the patient on the risks, benefits, alternatives, and complications of both non-operative and operative forms of treatment as outlined above. /[id number]/MODL Rafita acc#, 11/12/17, negrita GARCÍA
--- NOTE | 2017-10-23 06:38 | GOP ---
[f rep st] OPERATIVE REPORT Corrected report PATIENT: JAXON MOSQUERA DATE OF SERVICE: 10/22/17 PATIENT DATE OF : 1975 SURGEON: Alli Coleman M.D. PRODUCTION CONTROLLER: Nadiya ANESTHESIA: General PRE-OPERATIVE DIAGNOSES: Left hand deep space infection (ICD-10 code L02.512 cutaneous abscess of left hand) Left long finger purulent flexor tenosynovitis (ICD-10 code M65.849 flexor tenosynovitis) POST-OPERATIVE DIAGNOSES: Left hand deep space infection (ICD-10 code L02.512 cutaneous abscess of left hand) Left long finger purulent flexor tenosynovitis (ICD-10 code M65.849 flexor tenosynovitis) OPERATIVE PROCEDURES: CPT code 58498 Left long finger A1 franklin release CPT code 76043 Left long finger flexor tenosynovectomy CPT code 38903 Left long finger drainage of tendon sheath CPT code 82469 Left hand abscess incision and drainage, complicated CPT code 92313 Debridement of muscle and fascia, first 20 square cm or less CPT code 00037 Left open carpal tunnel release CPT code 06431 Application of a short-arm splint EBL: 1cc COMPLICATIONS: None TOURNIQUET TIME: 87 minutes at 250 mmHg IMPLANTS: None BRIEF CLINICAL NOTE: This is a very pleasant 42 year old male with a significant history for an early left hand deep space infection and early left long finger flexor tenosynovitis after a penetrating trauma on 10/20/17. As such , I discussed the risks, benefits, alternatives, and complications associated with both non-operative (specifically, observation, antibiotics) and operative ( specifically, left hand irrigation and debridement) forms of treatment. The patient fully understood the risks, benefits, alternatives, and complications associated with both forms of treatment and wished to proceed with operative intervention as outlined above. The patient signed the informed consent form for surgery. OPERATIVE NOTE: On the day of surgery, all of the patients questions were answered. The patient was then transferred from the pre-operative area into the operating room and a formal, Time-Out procedure was performed. The patient was identified by name, medical record number, social security number, and date of . In addition, the patients left upper extremity was identified as the correct portion of the patients body for surgery with the patients left hand being identified as the correct portion of that extremity for surgery. The brachium was then padded with webril and tourniquet was applied. The extremity was then prepped and draped in the normal sterile fashion. The extremity was then elevated for several minutes and the tourniquet was inflated to 250mm Hg. Suzi-type incisions were marked out overlying the left long finger distal phalanx and the left long finger A1 franklin. In addition, the A1 franklin incision was extended proximally overlying the carpal tunnel to incorporate the puncture wound into the incision. A number 15 blade was then used to incise the skin surrounding the puncture wound both proximally and distally. Soon after incising the skin, a moderate amount of purulent material was encountered overlying the left long finger flexor tendon and the interosseous muscles. The purulent material was swab cultured and tissue cultures were also obtained and sent to the laboratory for microbiologic examination. The anesthesia team administered intravenous antibiotics. The radial and ulnar neurovascular bundles to the long finger were identified and protected. The superficial palmar fascia was then incised longitudinally overlying the carpal tunnel. The transverse carpal ligament was then incised in its entirety (carpal tunnel release) to provide acess to the long finger flexor tendon within the carpal tunnel. Next, the left long finger A1 franklin was released. The left long finger flexor tendons were surrounded by unhealthy appearing synovial tissue. As such, a radical tenosynovectomy was performed for the left long finger flexor tendons. The wound was then sharply surgically debrided and copiously irrigated with sterile normal saline mixed with bacitracin and polymixin. Next, a new number 15 blade was then utilized to incise the skin overlying the volar distal phalanx of the left long finger. The radial and ulnar neurovascular bundles as well as the flexor tendon were identified and protected distally. A skin flap was carefully elevated and tied back in place utilizing 4-0 nylon suture. The distal end of the flexor sheath was then identified and incised. A five Russian pediatric feeding tube was then advanced through the proximal left long finger flexor sheath in an anterograde fashion. The entire flexor sheath was then copiously irrigated with sterile normal saline mixed with Bacitracin and polymixin. A one-quarter inch nu-gauze packing strip was then inserted into the original puncture wound site in the palm and all wounds were closed with 4-0 nylon sutures. The hand, fingers, and thumb were then cleaned with sterile normal saline and dried. Betadine soaked gauze was then applied to the incisions followed by a dry sterile dressing and a short-arm volar slab splint. Once the splint was completely in place, the tourniquet was deflated. After complete deflation of the tourniquet, all fingers and the thumb demonstrated brisk capillary refill. The patient was then reversed from anesthesia and transferred from the operating room table onto the post-operative gurney and transferred from the operating room to the post-anesthesia care unit in stable condition. POST-OPERATIVE PLAN: The patient will remain in the current splint and dressing for the next two days. The patient will be admitted to the hospitalist team and the infectious disease team will be consulted for recommendations on long-term antibiotics. /[id number]/MODL Rafita acc#, 11/12/17, negrita GARCÍA
[2017-10-23] MEDS: VANCOMYCIN 1.25 GM in NS 250 ML IV SCH (08:10)
[2017-10-23] MEDS: SENNOSIDES/DOCUSATE SODIUM TAB PO SCH (08:28)
[2017-10-23 09:28] VITALS: RESP 16; TEMP 98.6
[2017-10-23] MEDS ORDERED: ALTEPLASE 2 MG VIAL IVP PRN (10:34)
--- NOTE | 2017-10-23 10:39 | HOSPPROG ---
Hospitalist Progress Note Assessment/Plan: 42 yo M w flexor tenosynovitis tenosynovitis: s/p surgey on vanc picc line ID eval pain: IV morphine dispo: very anxious for dc today Subjective: case d/wdr rehana. afebrile Objective: Vital Signs Temp Pulse Resp BP Pulse Ox 37.0 C 70 16 99/72 L 93 10/23/17 09:24 10/23/17 09:24 10/23/17 09:24 10/23/17 09:24 10/23/17 09:24 Microbiology 10/22/17 17:00 Gram Stain - Final Hand - Tissue 10/22/17 17:00 Gram Stain - Final Hand - Eswab 10/22/17 17:00 Gram Stain - Final Hand - Eswab 10/22/17 17:00 Mycobacterial Smear (ROMANA) - Final Hand - Eswab Mycobacterial Culture - Final 10/22/17 17:00 Mycobacterial Smear (ROMANA) - Final Hand - Eswab Mycobacterial Culture - Final Laboratory Results 10/23/17 03:12 10/22/17 10/23/17 10/24/17 05:59 05:59 05:59 Intake Total 850 Output Total 200 Balance 650 - Physical Exam Constitutional: no apparent distress, appears nourished Eyes: PERRL, anicteric sclera Ears, Nose, Mouth, Throat: moist mucous membranes, hearing normal Cardiovascular: regular rate and rhythym, no murmur, rub, or gallop Respiratory: no respiratory distress, no rales or rhonchi Gastrointestinal: normoactive bowel sounds, soft, non-tender abdomen Genitourinary: No wyman in urethra Skin: warm, normal color Musculoskeletal: other (hand bandaged. fingers NV intact) Neurologic: AAOx3
--- NOTE | 2017-10-23 10:46 | PDMN ---
Medical Necessity Medical necessity: Pt meets IP criteria per MD; est los >2 mn for eval/tx of acute tenosynovitis/cellulitis requiring OR washout, ID consult, IV abx & cx data; per H&P & order 10/22/17
[2017-10-23 11:33] VITALS: BP 114/75; PULSE 64; O2SAT 94
--- NOTE | 2017-10-23 15:17 | ASMTCASEMG ---
Living Arrangements What is your living Answers: With Spouse arrangement? Who do you live with? Type Of Residence What kind of residence do Answers: House you live in? Discharge Plan Comments Coordination Status Comments Notes: Pts case reviewed in morning rounds. Pt is a 42 y/o man admitted for hand debridement abscess. Pt is being followed by infectious disease. Dr. Knowles has scheduled pt for tomorrow at 10AM at the outpatient infusion center at [facility]. Pt will most likely d/c independent when medically stable. CM available for changes. Plan: Independent Date Signed: 10/23/2017 03:16 PM Electronically Signed By:LANNY Barriga
[2017-10-23] MEDS ORDERED: cefTRIAXone 2 GM in STERILE WATER INJ 20 ML IV ONE (16:48)
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
== END 2017-10-23 18:21 | disposition home or self-care (01) | DRG 501 ==
LOC: FSGY 12:37 → F3E 16:02 → F2W 19:07
PROVIDERS: ADMIT Internal Medicine; ATTEND Internal Medicine
PROC: 0LN60ZZ Release Left Lower Arm and Wrist Tendon, Open Approach (ICD-10-PCS; principal; 2017-10-22 16:30)
PROC: 0L980ZZ Drainage of Left Hand Tendon, Open Approach (ICD-10-PCS; principal; 2017-10-22 16:30)
DX: M65.142 Other infective (teno)synovitis, left hand (principal); L02.512 Cutaneous abscess of left hand
CPT/HCPCS: A9585; J0696; J2250; J2270; J2704; J3010; J3370